=== PATIENT | male | born 2000 | race Caucasian/White ===

== ENCOUNTER 2023-01-27 11:12 | Emergency (ER) | payer OTHER, SELFPAY ==
[2023-01-27 11:30] VITALS: BP 144/103; PULSE 89; RESP 20; TEMP 36.9; O2SAT 98; BMI 36.3
--- NOTE | 2023-01-27 11:47 | EXP.UTC ---
Discharge Plan Disposition Patient Disposition: Home, Self-Care Condition: Good Prescriptions Prescriptions: New prednisone [prednisone] 20 mg tablet 20 mg PO BID 3 Days Qty: 6 0RF amoxicillin [amoxicillin] 875 mg tablet 875 mg PO Q12H Qty: 20 0RF blthuxuowzliujc-bzyzruvlu-JT [Bromfed DM] 2-30-10 mg/5 mL Syrup 5 ml PO Q6H PRN (Reason: Cough) Qty: 240 0RF Referrals Follow up/Referrals: Provider,Referral, MD [Primary Care Provider] - See instructions Activity Restrictions/Add. Instructions Additional Instructions/Restrictions: Drink plenty of fluids. Take tylenol or ibuprofen for pain or fever. Take the medications as directed. Follow up with your regular doctor. GO TO THE ER FOR ANY WORSENING SYMPTOMS Clinical Impressions Clinical Impression: Pharyngitis, Acute viral syndrome Stand Alone Forms Stand Alone Forms: Work/School Release Instructions Patient Instructions: DI for Pharyngitis/Tonsillopharyngitis -- Adult, DI for Viral Syndrome Discharge ED Provider: Mario Crouch [facility] General Stated complaint: sore throat, cough and dizzy Mode of Arrival: Ambulatory Source of Information: Patient Limitations: No Limitations Time Seen by Provider: 01/27/23 11:47 Description of Symptoms (Recalled from Triage Doc. by RN): PATIENT C/O COUGH, SORE THROAT, DIZZY SPELLS, AND DRY HEAVING SINCE FRIDAY HEENT Symptoms (Recalled from RN notes): Yes Resp Symptoms (Recalled from RN notes): Yes Skin Symptoms (Recalled from RN notes): No MS Symptoms (Recalled from RN notes): No Functional Status (Recalled from RN notes): WNL History of Present Illness Provider Complaint: He states that he has had a sore throat, chills, fever, and a cough for the past 3 days. Related Data Previous Rx's Medication Instructions Recorded amoxicillin 875 mg tablet 875 mg PO Q12H #20 tabs 01/27/23 kcyloviewfznrtr-dvqljqwurrlbneu-BS 5 ml PO Q6H PRN Cough #240 mL 01/27/23 2 mg-30 mg-10 mg/5 mL oral syrup (Bromfed DM) prednisone 20 mg tablet 20 mg PO BID 3 days #6 tabs 01/27/23 Allergies Allergy/AdvReac Type Severity Reaction Status Date / Time No Known Allergies Allergy Verified 01/27/23 11:44 Worker's Comp Is this a Worker's Comp case?: No [facility] Disclaimer: The information contained in this section may have been updated after the patient was seen, as this information can be updated by other users. Medical History (Updated 01/27/23 @ 12:12 by Mario Crouch APRN) Anxiety Depression Hypertension Social History Smoking Status: Never smoker alcohol intake: never current occupational status: employed Travel in the last 8 weeks: None ROS Obtained: Yes All systems reviewed & no additional complaints except as documented Constitutional Constitutional: Reports chills and Reports fever(s) Eyes Eyes: Denies eye discharge ENT Ears, Nose, Mouth, and Throat: Reports as per HPI Cardiovascular Cardiovascular: Denies chest pain Respiratory Respiratory: Denies chest congestion and Reports cough Gastrointestinal Gastrointestingal: Reports nausea; Denies abdominal pain, constipation, cramping, diarrhea or vomiting Musculoskeletal Musculoskeletal: Denies arthralgias Integumentary/Breasts Skin/Breast: Denies rash Neurologic Neurologic: Denies paresthesias Physical Exam General General appearance: alert and in no apparent distress Head Head exam: atraumatic, normocephalic and normal inspection Eye Eye exam: Present normal appearance, PERRL and EOMI ENT ENT exam: Present mucous membranes moist and normal external ear exam Expanded ENT Exam TM/Canal exam: Bilateral TM: erythema and bulging Nose exam: Absent sinus tenderness Mouth exam: Present normal external inspection; Absent drooling Teeth exam: Present normal inspection Throat exam: Present tonsillar erythema, tonsillomegaly and tonsillar exudate Neck Neck exam: Present normal inspection, full ROM and trachea midline; Absent ten
[2023-01-27 11:52] LABS: UTC Strep Screen (Rapid) Negative (Negative)
[2023-01-27 12:14] VITALS: BP 144/103; PULSE 89; RESP 20; TEMP 36.9; O2SAT 98
[2023-01-27 12:26] LABS: Adenovirus,PCR Not Detected (NotDetected); Coronavirus 19, PCR Not Detected (NotDetected); Coronavirus 229E Not Detected (NotDetected); Coronavirus NL63 Not Detected (NotDetected); Coronavirus OC43 Not Detected (NotDetected); Coronovirus HKU1,PCR Not Detected (NotDetected); Human Metapneumovirus Not Detected (NotDetected); Influenza A, PCR Not Detected (NotDetected); Influenza AH1, 2009 Not Detected (NotDetected); Influenza AH1, PCR Not Detected (NotDetected); Influenza AH3,PCR Not Detected (NotDetected); Influenza B, PCR Not Detected (NotDetected); Parainfluenza 1, PCR Not Detected (NotDetected); Parainfluenza 2, PCR Not Detected (NotDetected); Parainfluenza 3, PCR Not Detected (NotDetected); Parainfluenza 4, PCR Not Detected (NotDetected); Respiratory Syncytial Virus Not Detected (NotDetected); Rhinovirus/Enterovirus Not Detected (NotDetected)
== END 2023-01-27 12:18 | disposition home or self-care (01) ==
PROVIDERS: Emergency Provider Nurse Practitioner Family
DX: J02.9 Acute pharyngitis, unspecified (principal); B34.9 Viral infection, unspecified; I10 Essential (primary) hypertension; F41.9 Anxiety disorder, unspecified; F32.A Depression, unspecified
CPT/HCPCS: 87632; 87635; 87880; 99204; 99212; G0463

== ENCOUNTER 2023-02-11 10:16 | Emergency (ER) | payer OTHER, SELFPAY ==
[2023-02-11 10:35] VITALS: BP 154/97; PULSE 85; RESP 19; TEMP 36.9; O2SAT 97; BMI 35.8
--- NOTE | 2023-02-11 10:40 | XR_ITS ---
FINAL REPORT TECHNIQUE: Chest PA & Lateral CLINICAL HISTORY: cough FINDINGS: 2 views of the chest were performed. The heart size is normal. The mediastinum is within normal limits. There is no acute cardiopulmonary process. There are no pleural effusions. There is no pneumothorax. The bony thorax appears intact. IMPRESSION: No acute cardiopulmonary process. Reviewed, Interpreted and Dictated by Bebeto Cannon III, MD Transcribed by Barak Brown Authenticated and [facility]
--- NOTE | 2023-02-11 10:46 | EXP.UTC ---
Discharge Plan Disposition Patient Disposition: Home, Self-Care Prescriptions Prescriptions: New azithromycin [Zithromax] 250 mg tablet 250 mg PO UD DOSE PK Qty: 6 0RF Rx Instructions: Take two (2) tablets today, then one (1) tablet days #2 thru #5 methylprednisolone 4 mg Tablets,Dose Pack 4 mg PO DIRECTED Qty: 21 0RF ondansetron 4 mg Tablet,Disintegrating 4 mg PO Q8H PRN (Reason: Nausea) Qty: 12 0RF benzonatate [benzonatate] 100 mg capsule 100 mg PO TIDP PRN (Reason: Cough) Qty: 30 0RF No Action prednisone [prednisone] 20 mg tablet 20 mg PO BID 3 Days Qty: 6 0RF amoxicillin [amoxicillin] 875 mg tablet 875 mg PO Q12H Qty: 20 0RF wxqyprqbauqkivo-ykklradkj-ZN [Bromfed DM] 2-30-10 mg/5 mL Syrup 5 ml PO Q6H PRN (Reason: Cough) Qty: 240 0RF Referrals Follow up/Referrals: Provider,Referral, MD [Primary Care Provider] - See instructions Activity Restrictions/Add. Instructions Additional Instructions/Restrictions: Drink plenty of fluids. Take tylenol or ibuprofen for pain or fever. Take the medications as directed. Follow up with your regular doctor. GO TO THE ER FOR ANY WORSENING SYMPTOMS Stand Alone Forms Stand Alone Forms: Work/School Release Instructions Patient Instructions: Acute Bronchitis, DI for Acute Bronchitis Discharge ED Provider: Mario Crouch [facility] General Stated complaint: cough, congestion, vomiting Mode of Arrival: Ambulatory Source of Information: Patient Limitations: No Limitations Time Seen by Provider: 02/11/23 10:45 Description of Symptoms (Recalled from Triage Doc. by RN): PATIENT C/O PERSISTANT WET COUGH WITH YELLOW/GREEN SPUTUM X 4 WEEKS, VOMITING AND CONGESTION HEENT Symptoms (Recalled from RN notes): No Resp Symptoms (Recalled from RN notes): Yes Skin Symptoms (Recalled from RN notes): No MS Symptoms (Recalled from RN notes): No Functional Status (Recalled from RN notes): WNL History of Present Illness Provider Complaint: He states that he has continued to have cough and congestion. He was treated here with antibiotics and cough medication about 3 weeks ago. He states that he did get some better, but since he finished the medications his symptoms have returned. Related Data Previous Rx's Medication Instructions Recorded amoxicillin 875 mg tablet 875 mg PO Q12H #20 tabs 01/27/23 wnxownhddqaisxe-zomudmytdxjswud-XZ 5 ml PO Q6H PRN Cough #240 mL 01/27/23 2 mg-30 mg-10 mg/5 mL oral syrup (Bromfed DM) prednisone 20 mg tablet 20 mg PO BID 3 days #6 tabs 01/27/23 azithromycin 250 mg tablet 250 mg PO UD DOSE PK #6 tabs 02/11/23 (Zithromax) benzonatate 100 mg capsule 100 mg PO TIDP PRN Cough #30 caps 02/11/23 methylprednisolone 4 mg tablets in 4 mg PO DIRECTED #21 tabs 02/11/23 a dose pack ondansetron 4 mg disintegrating 4 mg PO Q8H PRN Nausea #12 tabs 02/11/23 tablet Allergies Allergy/AdvReac Type Severity Reaction Status Date / Time No Known Allergies Allergy Verified 01/27/23 11:44 Worker's Comp Is this a Worker's Comp case?: No [facility] Disclaimer: The information contained in this section may have been updated after the patient was seen, as this information can be updated by other users. Medical History (Updated 01/27/23 @ 12:12 by Mario Crouch APRN) Anxiety Depression Hypertension Social History (Updated 01/28/23 @ 10:22 by Mario Crouch APRN) Smoking Status: Never smoker alcohol intake: never current occupational status: employed Travel in the last 8 weeks: None ROS Obtained: Yes All systems reviewed & no additional complaints except as documented Constitutional Constitutional: Reports poor appetite Eyes Eyes: Reports system reviewed and no additional complaints, except as documented ENT Ears, Nose, Mouth, and Throat: Reports as per HPI Cardiovascular Cardiovascular: Reports system reviewed and no additional complaints, except as documented and Denies chest pain Respiratory
[2023-02-11 11:52] VITALS: BP 154/97; PULSE 85; RESP 19; TEMP 36.9; O2SAT 97
== END 2023-02-11 12:01 | disposition home or self-care (01) ==
PROVIDERS: Emergency Provider Nurse Practitioner Family
DX: J20.9 Acute bronchitis, unspecified (principal); I10 Essential (primary) hypertension
CPT/HCPCS: 71046; 99212; 99214; G0463

== ENCOUNTER 2025-03-29 00:39 | Emergency (ER) | payer MEDICAID, SELFPAY ==
[2025-03-29 00:47] VITALS: BP 150/105; PULSE 109; RESP 20; TEMP 36.9; O2SAT 99; BMI 38.0
--- NOTE | 2025-03-29 00:49 | XR_ITS ---
PROCEDURE INFORMATION: Exam: XR Abdomen Exam date and time: 03/29/2025 12:50 AM Age: 25 years old Clinical indication: Abdominal pain; Additional info: Abd pain TECHNIQUE: Imaging protocol: Radiologic exam of the abdomen. Views: Frontal supine view of the abdomen. 1 View. Total images: 2 COMPARISON: CR XR CHEST 2V 02/11/2023 11:21 AM FINDINGS: Heart/Mediastinum: Normal heart size. Lungs: Lung bases are clear. Gastrointestinal tract: Nonspecific, nonobstructive bowel gas distribution. No dilated small bowel segments. Mild colonic stool burden. Organs: No organomegaly or pathologic calcifications. Bones/joints: Unremarkable. Soft tissues: Peritoneal fascial planes are maintained. IMPRESSION: 1. Nonspecific, nonobstructive bowel gas distribution. 2. Mild colonic stool burden.
--- NOTE | 2025-03-29 00:50 | ECG_ITS ---
APPROVED REPORT Exam: Resting ECG HR:92 bpm ECG Measurements Heart Rate 92 AXES PA 164 P 57 QRSd 107 QRS 83 QT 339 T 21 QTc 389 Conclusion SINUS RHYTHM INCOMPLETE RIGHT BUNDLE BRANCH BLOCK [90+ ms QRS DURATION, TERMINAL R IN V1/V2, 40+ ms S IN I/aVL/V4/V5/V6] BORDERLINE ECG UNCONFIRMED REPORT Electronically signed by : LOY CH, 04/01/2025 06:58:39
--- NOTE | 2025-03-29 01:00 | HMH.EDGENADL ---
Discharge Plan Disposition Patient Disposition: Home, Self-Care Prescriptions Prescriptions: New ondansetron HCl 4 mg tablet 4 mg PO Q8H PRN (Reason: nausea and vomiting) 5 Days Qty: 30 0RF No Action azithromycin [Zithromax] 250 mg tablet 250 mg PO UD DOSE PK Qty: 6 0RF Rx Instructions: Take two (2) tablets today, then one (1) tablet days #2 thru #5 methylprednisolone 4 mg Tablets,Dose Pack 4 mg PO DIRECTED Qty: 21 0RF ondansetron 4 mg Tablet,Disintegrating 4 mg PO Q8H PRN (Reason: Nausea) Qty: 12 0RF benzonatate [benzonatate] 100 mg capsule 100 mg PO TIDP PRN (Reason: Cough) Qty: 30 0RF prednisone [prednisone] 20 mg tablet 20 mg PO BID 3 Days Qty: 6 0RF amoxicillin [amoxicillin] 875 mg tablet 875 mg PO Q12H Qty: 20 0RF ifsdxnrdpqhhihe-ijeqzucdp-AS [Bromfed DM] 2-30-10 mg/5 mL Syrup 5 ml PO Q6H PRN (Reason: Cough) Qty: 240 0RF Referrals Follow up/Referrals: Provider,Referral, MD [Primary Care Provider, Medical] - See instructions Activity Restrictions/Add. Instructions Additional Instructions/Restrictions: Please follow-up with your primary care provider. Please return to the emergency department if you develop any new or worsening symptoms or become concerned for your health. Clinical Impressions Clinical Impression: Nausea and vomiting, Abdominal pain Instructions Patient Instructions: DI for Acute Abdominal Pain Print Language Print Language: Persian Discharge ED Provider: Eloy Sosa Adult HPI General Chief complaint: Abdominal Pain Stated complaint: vomiting, pain under rib cage Time Seen by Provider: 03/29/25 00:40 Mode of Arrival: Ambulatory Source of Information: Patient Description of Symptoms (Recalled from ER Triage Doc. by RN): Pt states he had sudden onset of epigastric pain and vomiting History of Present Illness HPI narrative: 25-year-old male without significant past medical history besides hypertension presents for abdominal pain. He reports it started at approximate 11:00. Lamar like something hard was in his epigastric region, then became sharp, then radiated to his back. Denies any chest pain or shortness of breath. Reports multiple episodes of vomiting. Denies any fever at home. No one else is sick. Reports regular stools. Related Data Previous Rx's ?Medication ?Instructions ?Recorded amoxicillin 875 mg tablet 875 mg PO Q12H #20 tabs 01/27/23 emrzycmuimpdmhr-ilkkzfznqepvivc-IQ 5 ml PO Q6H PRN Cough #240 mL 01/27/23 2 mg-30 mg-10 mg/5 mL oral syrup (Bromfed DM) prednisone 20 mg tablet 20 mg PO BID 3 days #6 tabs 01/27/23 azithromycin 250 mg tablet 250 mg PO UD DOSE PK #6 tabs 02/11/23 (Zithromax) benzonatate 100 mg capsule 100 mg PO TIDP PRN Cough #30 caps 02/11/23 methylprednisolone 4 mg tablets in 4 mg PO DIRECTED #21 tabs 02/11/23 a dose pack ondansetron 4 mg disintegrating 4 mg PO Q8H PRN Nausea #12 tabs 02/11/23 tablet ondansetron HCl 4 mg tablet 4 mg PO Q8H PRN nausea and 03/29/25 vomiting 5 days #30 tabs Allergies Allergy/AdvReac Type Severity Reaction Status Date / Time No Known Allergies Allergy Verified 01/27/23 11:44 [facility] Disclaimer: The information contained in this section may have been updated after the patient was seen, as this information can be updated by other users. Medical History (Updated 03/29/25 @ 01:19 by Eloy Sosa MD) Depression Anxiety Hypertension Social History (Updated 01/28/23 @ 10:22 by Mario Crouch APRN) Smoking Status: Never smoker alcohol intake: never current occupational status: employed Travel in the last 8 weeks?: None Have you lived/traveled outside [place] in past 30 days?: No Contact w/someone who lives/traveled outside [place] past 30 days?: No Exposure to someone with infectious disease in past 14 days?: No Do you have a fever (greater than 100.4 F or 38 C)?: No Have you tested positive for COVID-19?: No Exposed to someone with COVID-19 in past 14 days?: No Do you have a sore throat?: No Do you have a cough?: No Do you have any weakness?: No Do you have any diarrhea?: No Are you experiencing any unusual bleeding?: No Do you have any muscle aches/pain?: No Do you have any abdominal pain?: No Are you experiencing loss of taste or smell?: No ROS Obtained: Yes All systems reviewed & no additional complaints except as documented Physical Exam General General appearance: alert and in no apparent distress Head Head exam: atraumatic and normocephalic Eye Eye exam: Present normal appearance, PERRL and EOMI ENT ENT exam: Present normal oropharynx and normal external ear exam Neck Neck exam: Present normal inspection and full ROM Chest Chest inspection: Present normal inspection and symmetric chest wall rise; Absent tenderness Respiratory Respiratory exam: Present normal lung sounds bilaterally; Absent respiratory distress Cardiovascular Cardiovascular exam: Present regular rate and normal rhythm Abdominal Exam Abdominal exam: Present soft and tenderness (Minimal, epigastric. No right upper quadrant tenderness); Absent distention or guarding Extremities Exam Extremities exam: Present normal inspection; Absent edema or joint swelling Back Exam Back exam: Present normal inspection; Absent tenderness Neurological Exam Neurological exam: Present alert and oriented X3; Absent motor sensory deficit Psychiatric Psychiatric exam: Present normal affect and normal mood Skin Skin exam: Present warm, dry and normal color Lymphatic Lymphatic Findings: no adenopathy Medical Decision Making Medical Records Medical records reviewed: Yes I reviewed the patient's medical records. Screening: Per USPSTF and CDC recommendations, given the prevalence of disease in our region, it is our hospital?s policy to screen for HIV and viral Hepatitis for all patients aged 18 and over and those with ongoing risk factors. Jaime Inquiry Pt receiving controlled substance: No Jaime was queried for this patient: No Vital Signs: 03/29/25 00:47 Temperature 98.5 F Temperature Source Oral Pulse Rate [Right Radial] 109 H Respiratory Rate 20 Blood Pressure [Right Arm] 150/105 H Blood Pressure Mean [Right Arm] 120 Blood Pressure Source [Right Arm] Automatic Cuff Blood Pressure Position [Right Arm] Sitting 02 Sat by Pulse Oximetry 99 Oxygen Delivery Method Room Air Lab Data Lab results reviewed: Yes I reviewed the patient's lab results. Lab Results 03/29/25 01:00: WBC 8.9, RBC 5.71, Hgb 16.1, Hct 46.8, MCV 82.0, MCH 28.2, MCHC 34.4, RDW 12.7, Plt Count 272, MPV 8.5, Neut % (Auto) 52.7, Lymph % (Auto) 38.8, Stearns % (Auto) 6.3, Eos % (Auto) 1.8, Baso % (Auto) 0.3, Neut # (Auto) 4.7, Lymph # (Auto) 3.5, Stearns # (Auto) 0.6, Eos # (Auto) 0.2, Baso # (Auto) 0.0, Sodium 141, Potassium 3.8, Chloride 105, Carbon Dioxide 26, Anion Gap 13.8, BUN 16, Creatinine 0.90, Estimated Creat Clear 236, Estimated GFR 102, Est GFR ( Amer) 123, Glucose 127 H, Calcium 9.6, Total Bilirubin 0.8, AST 66 H, ALT 102 H, Alkaline Phosphatase 67, Total Protein 8.2, Albumin 4.8, Globulin 3.4 H, Albumin/Globulin Ratio 1.4, Lipase 100 03/29/25 01:00 03/29/25 01:00 Orders (Tests/Meds): ED MEDICATIONS Generic Name Dose Route Start Last Admin Trade Name Freq PRN Reason Stop Dose Admin Lactated Ringer's 1,000 mls @ 999 mls/hr 03/29/25 01:00 Lactated Ringer's 1000 Ml Bag IV 03/29/25 02:00 .Q1H1M YEFRI Discontinued Medications Generic Name Dose Route Start Last Admin Trade Name Freq PRN Reason Stop Dose Admin Acetaminophen 1,000 mg 03/29/25 00:48 03/29/25 01:02 Acetaminophen 500mg Tab PO 03/29/25 00:49 1,000 mg ONCE ONE Administration Belladonna Alkaloids 60 ml 03/29/25 00:48 03/29/25 01:02 Belladonna Alkaloids 60 Ml Ml PO 03/29/25 00:49 60 ml ONCE ONE Administration Ketorolac Tromethamine 30 mg 03/29/25 00:48 03/29/25 01:02 Ketorolac 30mg/Ml Vial IV 03/29/25 00:49 30 mg ONCE ONE Administration Ondansetron HCl 4 mg 03/29/25 00:48 03/29/25 01:02 Ondansetron 4mg/2ml Vial IV 03/29/25 00:49 4 mg ONCE ONE Administration ORDERS Category Date Time Status KUB (single view) [XR KUB] Stat Exams 03/29/25 00:49 Completed POCUS Point of Care (ER Only) Stat Exams 03/29/25 01:06 Ordered CBC w/Auto Diff [Complete Blood Count Auto Diff] Stat Lab 03/29/25 01:00 Completed CMP [Comprehensive Metabolic Panel] Stat Lab 03/29/25 01:00 Completed HIV Combo Routine Lab 03/29/25 01:00 Received Hepatitis C Ab Qual. W/ RFX Routine Lab 03/29/25 01:00 Received Lipase Stat Lab 03/29/25 01:00 Completed Medical Decision Narrative: 25-year-old male with history of hypertension presents for epigastric pain and vomiting.. History was obtained via interactive discussion with patient. On arrival, patient is [afebrile, hemodynamically stable, satting appropriately, alert, oriented x4, GCS 15], moving all extremities spontaneously. Full physical exam performed and significant for minimal epigastric tenderness, no right upper quadrant tenderness Differential includes but is not limited to gastroenteritis, GERD, pancreatitis, cholecystitis,. Patient was given Tylenol Toradol and Zofran GI cocktail fluid bolus for symptomatic management and correction of underlying abnormalities. Workup initiated including CBC CMP lipase. KUB, bedside ultrasound On re-evaluation, patient reports significant symptomatic improvement, feels basically back to normal. Laboratory workup independently interpreted by me and significant for no elevation in lipase,. Imaging independently interpreted by me and significant for KUB without significant stool burden or evidence of obstruction. See radiology read for full review of final results. Bedside ultrasound does not show any evidence of gallbladder abnormality. EKG independently interpreted by me and significant for normal sinus rhythm, ventricular rate of 92, incomplete right bundle branch block, no significant ST [place]. [place] [address]50. CT of the abdomen was considered but deemed unnecessary given negative workup and symptomatic improvement. Given patient history, exam and workup, patient's presentation most likely represents nausea vomiting and epigastric pain of uncertain etiology. Procedures Risk/Benefits of Procedure(s) Were Explained: Yes Limited Ultrasound Indication:: Limited RUQ ultrasound Indication: Abdominal pain Identified structures: -Gallbladder -Gallbladder wall Findings: Sonographic Peterson sign: Absent Gallstones: Abscess Sludge: Absent Pericholecystic fluid: Absent Maximal GB wall thickness (mm): Grossly normal Common bile duct width (mm): Unable to visualize Gallbladder width (cm): Grossly normal Gallbladder length (cm): Grossly normal Impression: Normal gallbladder without stones or sludge Images were saved to permanent archive The study was technically adequate CPT 35968-63 This study was performed by me, Dr. Sosa, and I personally interpreted all images/videos. Critical Care Critical Care Time Critical Care Time: No
[2025-03-29] MEDS: ACETAMINOPHEN 500MG TAB 1000 MG PO (01:02)
[2025-03-29] MEDS: ONDANSETRON 4MG/2ML VIAL 4 MG IV (01:02)
[2025-03-29] MEDS: KETOROLAC 30MG/ML VIAL 30 MG IV (01:02)
[2025-03-29] MEDS: BELLADONNA ALKALOIDS 60 ML ML PO (01:02)
[2025-03-29 01:11] LABS: Hematocrit 46.8 % (42.0-52.0); Hemoglobin 16.1 g/dL (14.1-18.0); Immature Granulocytes % 0.1 %; Mean Corpuscular HGB Conc 34.4 g/dL (31.8-35.4); Mean Corpuscular Hemoglobin 28.2 pg (27.0-31.2); Mean Corpuscular Volume 82.0 fl (80-94); Nucleated Red Blood Cells % 0 %; Platelet Count 272 K/mm3 (142-424); Red Blood Count 5.71 M/mm3 (4.60-6.20); Red Cell Distribution Width-SD 37.2 fL; White Blood Count 8.9 K/mm3 (4.8-10.8)
[2025-03-29 01:17] LABS: Alanine Aminotransferase 102 U/L (12-78); Albumin Level 4.8 g/dl (3.5-5.0); Albumin/Globulin Ratio 1.4 (1.1-1.8); Alkaline Phosphatase 67 U/L (38-126); Anion Gap 13.8 mEq/L (5-15); Aspartate Amino Transferase 66 U/L (17-59); Bilirubin,Total 0.8 mg/dl (0.2-1.3); Blood Urea Nitrogen 16 mg/dl (9-20); Calcium 9.6 mg/dl (8.4-10.2); Carbon Dioxide 26 mmol/L (22.0-30.0); Chloride 105 mmol/L (98-107); Creatinine Clearance Estimated 236 mL/min (50-200); Creatinine,Serum 0.90 mg/dl (0.66-1.25); Estimated Glomerular Filt Rate 102 ml/min (>60); GFR (African American) 123 ML/MIN (>60); Globulin 3.4 g/dL (1.3-3.2); Glucose 127 mg/dl (74-100); Lipase 100 U/L (23-300); Potassium 3.8 mmoL/L (3.5-5.1); Sodium 141 mmol/L (136-145); Total Protein,Serum 8.2 g/dl (6.3-8.2)
[2025-03-29 01:25] VITALS: BP 121/81; PULSE 81; RESP 20; TEMP 36.9; O2SAT 96
[2025-03-29 03:52] LABS: Hepatitis C Ab Qual. W/ RFX NEGATIVE (Negative)
== END 2025-03-29 01:31 | disposition home or self-care (01) ==
PROVIDERS: Emergency Provider Emergency Medicine
DX: R10.13 Epigastric pain (principal); R11.2 Nausea with vomiting, unspecified
CPT/HCPCS: 74018; 80053; 83690; 85025; 86803; 87389; 93005; 96361; 96374; 96375; 99284; J1885; J2405